=== PATIENT | female | born 1950 | race Caucasian/White ===

== ENCOUNTER → 2019-12-22 | Outpatient (REF) | payer MEDICARE, BC ==
[2019-12-22 17:50] LABS: CALCIUM LEVEL 8.7 MG/DL (8.8-10.2); CREATININE FOR GFR 7.34 MG/DL (0.55-1.30); GLOMERULAR FILTRATION RATE 5.8 (>39); POTASSIUM SERUM 4.6 MEQ/L (3.5-5.1)
== END ==
LOC: M LABDRWAD 16:36
PROVIDERS: ATTEND Physician Assistant
DX: I50.32 Chronic diastolic (congestive) heart failure (principal); R60.0 Localized edema; N17.9 Acute kidney failure, unspecified

== ENCOUNTER → 2022-11-04 | Outpatient (CLI) | payer MEDICARE, BC | LOC: M RAD 12:14 | PROVIDERS: ATTEND Family Medicine | DX: E04.1 Nontoxic single thyroid nodule (principal) ==

== ENCOUNTER → 2022-11-14 | Outpatient (CLI) | payer MEDICARE, BC | LOC: M RAD 14:24 | PROVIDERS: ATTEND Physical Therapist | DX: M79.604 Pain in right leg (principal) ==

== ENCOUNTER → 2023-12-03 | Outpatient (CLI) | payer MEDICARE, BC | LOC: M CARPUL 13:07 | PROVIDERS: ATTEND Physician Assistant Surgical | DX: Z01.818 Encounter for other preprocedural examination (principal) ==

== ENCOUNTER 2024-03-09 12:43 | Day surgery (SDC) | payer MEDICARE, BC ==
[~2024-03-09] VITALS: Ht 152.4 cm; Wt 79.3 kg
[2024-03-09] MEDS: NS 1,000 ML IV ONE (06:00)
[~2024-03-09 12:43] MED LIST: ATOR40TA75 PO; CALC1CAP31 PO; CARV25TA PO; ELIQ5TAB4 PO; ERGO500029 PO; FERR1TAB8 PO; HYDR25TA87 PO; INSUH10VL SC; INSUHUMDS SC; JANU100T PO; LOSA100T46 PO; MAGN200T PO; OMEP1CAP73 PO; POTA-149 PO; RENATAB6 PO; SEVE800T3 PO; TORS20TA2 PO
[2024-03-09] MEDS ORDERED: fentaNYL 100 MCG/2 ML INJECTION As Ordered ONE (14:24)
[2024-03-09] MEDS ORDERED: LIDOCAINE 2% 100MG/5ML SDV (FOR ANES.) As Ordered ONE (14:25)
[2024-03-09] MEDS ORDERED: propofoL 200 MG/20 ML VIAL As Ordered ONE (14:25)
[2024-03-09 15:50] VITALS: BP 138/65; O2SAT 95
== END 2024-03-09 15:58 | disposition home or self-care (01) ==
LOC: M OPP 12:43
PROVIDERS: ATTEND Internal Medicine Gastroenterology
DX: D12.0 Benign neoplasm of cecum (principal); K44.9 Diaphragmatic hernia without obstruction or gangrene; K57.30 Diverticulosis of large intestine without perforation or abscess without bleeding; K64.8 Other hemorrhoids; R12 Heartburn; I12.0 Hypertensive chronic kidney disease with stage 5 chronic kidney disease or end stage renal disease; E11.22 Type 2 diabetes mellitus with diabetic chronic kidney disease; N18.6 End stage renal disease; Z99.2 Dependence on renal dialysis; I48.91 Unspecified atrial fibrillation; Z95.5 Presence of coronary angioplasty implant and graft; Z79.899 Other long term (current) drug therapy; Z79.01 Long term (current) use of anticoagulants; Z79.4 Long term (current) use of insulin; Z79.84 Long term (current) use of oral hypoglycemic drugs; Z90.710 Acquired absence of both cervix and uterus; Z88.8 Allergy status to other drugs, medicaments and biological substances
CPT/HCPCS: 36415; 43239; 45385; 84132; 88305; J3010